=== PATIENT | female | born 1995 | race Caucasian/White ===

== ENCOUNTER 2018-05-16 18:50 | Emergency (ER) | payer MEDICAID, OTHER ==
[~2018-05-16] VITALS: Ht 167.6 cm; Wt 72.6 kg
[2018-05-16 19:06] VITALS: BP 122/79
[2018-05-16] MEDS ORDERED: DUONEB 0.5 MG-3 MG/3 ML SOLN IH ONE (19:30)
[2018-05-16] MEDS ORDERED: DECADRON ONE (19:30)
[2018-05-16] MEDS ORDERED: PREDNISONE ONE (19:34)
[2018-05-16] MEDS ORDERED: DUONEB 0.5 MG-3 MG/3 ML SOLN IH STA (19:35)
[2018-05-16] MEDS ORDERED: DECADRON IH STA (19:35)
--- NOTE | 2018-05-16 19:42 | ER.PDOC ---
General Chief Complaint: General Complaint Stated Complaint: ASTHMA MED REFILL,POSS FLU Time seen by MD: 19:36 Source: patient Exam Limitations: no limitations History of Present Illness Initial Comments Cough for 1-2 weeks and ran out of her Inhaler. Timing/Duration: gradual Severity: moderate Associated Symptoms: runny nose, cough Constitutional: no symptoms reported EENTM: nose congestion Respiratory: cough Cardiovascular: no symptoms reported Gastrointestinal: no symptoms reported All Other Systems: Reviewed and Negative Past Medical History Medical History: asthma Surgical History: tonsillectomy LMP (females 10-50): patient states periods are very irregular Social History Smoking: less than 1 pack/day Alcohol Use: none Drug Use: none Physical Exam General Appearance: alert, no distress Nose: nose nml Throat: pharynx nml, airway nml Neck: nml inspection, supple Respiratory: no resp.distress, wheezes Abdomen: non-tender, no organomegaly CVS: reg rate & rhythm, heart sounds nml Skin: color nml, no rash, warm/dry Extremities: non-tender, nml ROM, no pedal edema NEURO/PSYCH: oriented x 3, CN's nml as tested, motor nml, sensation nml, mood/ affect nml Departure Time of Disposition: 19:39 Disposition: 01 HOME, SELF-CARE Impression: Primary Impression: Asthmatic bronchitis Condition: Improved Referrals: PCP,UNKNOWN (PCP) PRIMARY CARE PROVIDER Additional Instructions: Prednisone Z pack Albuterol HFA Mucinex DM OTC as directed F/U with your PCP in 2-3 days Duration or Time Spent with Pa: 30 mins Problem Qualifiers Primary Impression: Asthmatic bronchitis Asthma severity: mild Asthma persistence: intermittent Asthma complication type: with acute exacerbation Qualified Codes: J45.21 - Mild intermittent asthma with (acute) exacerbation SHE JOHNSON MD May 16, 2018 19:42
[2018-05-16 20:00] VITALS: BP 117/75
[2018-05-16 20:15] VITALS: BP 117/75
== END 2018-05-16 20:12 | disposition home or self-care (01) ==
LOC: ER 18:50 → CANBEDREQ 19:55 → ER 20:12
DX: J45.21 Mild intermittent asthma with (acute) exacerbation (principal); F17.210 Nicotine dependence, cigarettes, uncomplicated; Z90.89 Acquired absence of other organs
CPT/HCPCS: 94640; 99283; J1100; J7512; J7620